=== PATIENT | male | born 1945 | race Caucasian/White ===

== ENCOUNTER 2016-10-02 13:01 | Inpatient (IN) | payer OTHER, MEDICARE ==
[2016-10-02 13:24] LABS: Basophils % (A) 0 %; CH 31.5; CHCM 32.3; Eosinophils # (A) 0.3 k/uL (0-0.7); Eosinophils % (A) 3 %; HCT 34.4 % (39.0-53.0); HDW 2.34; HGB 11.3 gm/dL (13.0-17.5); Luc # (Auto) 0.14; Luc % (Auto) 1; Lymphocytes # (A) 1.2 k/uL (1.0-4.8); Lymphocytes % (A) 11 %; MCHC 32.7 g/dL (31.0-37.0); MCV 97.8 fL (80.0-100.0); Mean Platelet Volume 7.7; Monocytes # (A) 0.4 k/uL (0-1.0); Monocytes % (A) 4 %; Neutrophils # (A) 8.4 k/uL (1.3-7.7); Neutrophils % (A) 80 %; RBC 3.52 m/uL (4.30-5.90); RDW 13.4 % (11.5-15.5); WBC 10.5 k/uL (3.8-10.6); WBC (Perox) 11.54
[2016-10-02 13:35] LABS: INR 1.2 (<1.1); Partial Thromboplastin Time 24.8 sec (22.0-30.0)
--- NOTE | 2016-10-02 13:37 | XR ---
EXAMINATION TYPE: XR chest 1V portable DATE OF EXAM: 10/02/2016 1:32 PM COMPARISON: 10/19/2015 HISTORY: Chest pain TECHNIQUE: Single frontal view of the chest is obtained. FINDINGS: Cardiomegaly and postoperative change. Diffuse interstitial pattern. No pneumothorax or pl eural effusion. No focal pneumonia. IMPRESSION: 1. Correlate for mild interstitial venous congestion. Chronic interstitial lung disease in the differ ential. 2. Severe cardiomegaly
[2016-10-02 13:47] LABS: ALT 36 U/L (21-72); AST 31 U/L (17-59); Alkaline Phosphatase 87 U/L (38-126); Anion Gap 11 mmol/L; Blood Urea Nitrogen 16 mg/dL (9-20); Calcium 8.9 mg/dL (8.4-10.2); Carbon Dioxide 27 mmol/L (22-30); Chloride 106 mmol/L (98-107); Glucose 136 mg/dL (74-99); Magnesium 1.4 mg/dL (1.6-2.3); Non-African American GFR(MDRD) >60 (>60 ml/min/1.73 sqM); Potassium 4.2 mmol/L (3.5-5.1); Sodium 144 mmol/L (137-145); Total Bilirubin 0.5 mg/dL (0.2-1.3)
[2016-10-02 14:06] LABS: Creatine Kinase MB 4.8 ng/mL (0.0-2.4)
[2016-10-02 14:07] LABS: Troponin I 0.055 ng/mL (0.000-0.034)
[2016-10-02] MEDS ORDERED: HEPARIN SODIUM,PORCINE 5,000 UNIT/ML 1 ML VIAL IV PRN ×2 (14:08→22:50)
[2016-10-02] MEDS ORDERED: HEPARIN SODIUM,PORCINE 5,000 UNIT/ML 1 ML VIAL IV ONE (14:08)
[2016-10-02] MEDS ORDERED: RX INFO: IV CONTRAST WAS GIVEN 1 EACH MISC MISCELLANE PRN (14:27)
[2016-10-02] MEDS ORDERED: NITROGLYCERIN SL TABS 0.4 MG TAB SUBLINGUAL PRN (14:34)
[2016-10-02] MEDS ORDERED: MAGNESIUM SULFATE-D5W PMX 1 GM in DEXTROSE/WATER 1 100ML.BAG IVPB ONE (14:45)
--- NOTE | 2016-10-02 14:45 | ED ---
Chest Pain HPI - General Chief Complaint: Recheck/Abnormal Lab/Rx Stated Complaint: EKG CHANGES Time Seen by Provider: 10/02/16 13:06 Source: patient, RN notes reviewed Mode of arrival: EMS Limitations: no limitations - History of Present Illness Initial Comments: This patient is 71-year-old man who states [facility] in his [facility]. The patient when pressed further does admit to having some intermittent chest pains, usually with exertion, that been occurring for weeks to months. He states when the pains are present he also becomes winded very easily. He notes that his exercise tolerance has disappeared. The patient is currently not having chest pain or dyspnea. He does admit to some bilateral lower extremity edema but states that this is present more often than not. MD Complaint: chest pain -: month(s) Onset: during exertion Pain Location: substernal Quality: heaviness Consistency: now resolved Improves With: rest Worsens With: exertion Anginal Symptoms: dyspnea - Related Data Home Medications Medication Instructions Recorded Confirmed Aspirin 81 mg PO DAILY 10/02/16 10/02/16 Atenolol [Tenormin] 25 mg PO DAILY 10/02/16 10/02/16 Clopidogrel [Plavix] 75 mg PO DAILY 10/02/16 10/02/16 Insulin NPH Hum/Reg Insulin Hm 40 unit SQ BID 10/02/16 10/02/16 [NovoLIN 70-30 100 UNIT/ML VIAL] Isosorbide Mononitrate [Ismo] 20 mg PO DAILY 10/02/16 10/02/16 Losartan [Cozaar] 50 mg PO DAILY 10/02/16 10/02/16 Oxybutynin Chloride 5 mg PO BID 10/02/16 10/02/16 Pravastatin Sodium [Pravachol] 20 mg PO HS 10/02/16 10/02/16 Prostate Medication (Unknown) 1 tab PO DAILY 10/02/16 10/02/16 Tamsulosin HCl [Flomax] 0.4 mg PO BID 10/02/16 10/02/16 oxyCODONE-APAP 5-325MG [Percocet 2 tab PO QID PRN 10/02/16 10/02/16 5-325 mg] Allergies Allergy/AdvReac Type Severity Reaction Status Date / Time ciprofloxacin Allergy Unknown Verified 10/02/16 14:20 lisinopril Allergy Cough Verified 10/02/16 14:20 niacin Allergy Unknown Verified 10/02/16 14:20 Penicillins Allergy Rapid Verified 10/02/16 14:20 Heart Rate Sulfa (Sulfonamide Allergy Nausea & Verified 10/02/16 14:20 Antibiotics) Vomiting Review of Systems ROS Statement: Those systems with pertinent positive or pertinent negative responses have been documented in the HPI. ROS Other: All systems not noted in ROS Statement are negative. Constitutional: Denies: fever, chills Respiratory: Denies: cough, dyspnea Cardiovascular: Reports: dyspnea on exertion, edema. Denies: chest pain, palpitations, syncope Gastrointestinal: Denies: abdominal pain, nausea, vomiting Genitourinary: Denies: dysuria, hematuria Musculoskeletal: Denies: back pain Skin: Denies: rash Neurological: Denies: headache, weakness, numbness EKG Findings - EKG Comments: EKG Findings:: The patient's underlying rhythm is appearing to be junctional with a rate about 50 bpm, though it there may be underlying atrial fibrillation with a slow response. - EKG Results: EKG: interpreted by KRISTI, normal axis - Blocks, [place], Hypertrophy, ST Abn: AV and intraventricular conduction: right bundle branch block (fixed/ intermittent, complete/incomplete) - DE, Pacemaker, Normal: Myocardial infarction: anterior DE (old age or indeterminate) (There are Q waves present in leads V3 through V5 suggestive of old anterior infarct) Past Medical History Past Medical History: Diabetes Mellitus, Hyperlipidemia, Hypertension, Myocardial Infarction ([place]) History of Any Multi-Drug Resistant Organisms: None Reported Past Surgical History: Appendectomy, Coronary Bypass/CABG, Tonsillectomy Additional Past Surgical History / Comment(s): right knee surgery; left foot surgery Past Psychological History: No Psychological Hx Reported Smoking Status: Former smoker Past Alcohol Use History: None Reported Past Drug Use History: None Reported - Past Family History Mother Family Medical History: Myocardial Infarction ([place]) Father Additional Family Medical History / Comment(s): cerebral hemorrage General Exam Limitations: no limitations General appearance: alert, in no apparent distress, obese Head exam: Present: atraumatic, normocephalic Eye exam: Present: normal appearance. Absent: scleral icterus, conjunctival injection ENT exam: Present: normal oropharynx Neck exam: Present: normal inspection, full ROM Respiratory exam: Present: normal lung sounds bilaterally. Absent: respiratory distress, wheezes, rales, rhonchi, stridor Cardiovascular Exam: Present: regular rate, normal rhythm, normal heart sounds. Absent: systolic murmur, diastolic murmur, rubs, gallop GI/Abdominal exam: Present: soft. Absent: distended, tenderness, guarding, rebound, mass Extremities exam: Present: normal inspection, normal capillary refill, pedal edema. Absent: calf tenderness Back exam: Present: normal inspection. Absent: CVA tenderness (R), CVA tenderness (L) Neurological exam: Present: alert Skin exam: Present: warm, dry, intact, normal color. Absent: rash, cyanosis, diaphoretic, erythema, petechiae, pallor, mottled Course Vital Signs 10/02/16 10/02/16 10/02/16 13:04 13:20 14:06 Temperature 97.3 F L Pulse Rate 51 L 51 L Pulse Rate [ 54 L Hand Violin Maker ] Respiratory 18 18 Rate Blood Pressure 175/102 168/80 Blood Pressure [Right Arm] O2 Sat by Pulse 99 100 Oximetry 10/02/16 10/02/16 10/02/16 14:34 14:52 15:38 Temperature 96.9 F L Pulse Rate 52 L Pulse Rate [ 53 L Hand Violin Maker ] Respiratory 18 20 Rate Blood Pressure 182/76 Blood Pressure 125/60 [Right Arm] O2 Sat by Pulse 98 100 98 Oximetry 10/02/16 15:45 Temperature 98.4 F Pulse Rate 51 L Pulse Rate [ Hand Violin Maker ] Respiratory 18 Rate Blood Pressure 177/74 Blood Pressure [Right Arm] O2 Sat by Pulse 98 Oximetry Disposition Clinical Impression: Acute coronary syndrome Disposition: ADMITTED IP TO THIS HOSP Condition: Fair
[2016-10-02] MEDS ORDERED: FUROSEMIDE 10 MG/ML 2 ML VIAL IV STA (14:46)
--- NOTE | 2016-10-02 15:03 | CT ---
EXAMINATION TYPE: CT chest angio for PE DATE OF EXAM: 10/02/2016 2:52 PM COMPARISON: Chest x-ray earlier today. HISTORY: Elevated d-dimer, patient not feeling well. CT DLP: 590.90 mGycm Automated exposure control for dose reduction was used. CONTRAST: CT Chest for pulmonary embolism performed with with IV Contrast, patient injected with 100 mL of Omni paque 350. FINDINGS: LUNGS: There is 3 mm calcified nodule laterally left upper lung on axial image 20. Exam is suboptimal as is degraded by respiratory motion artifact. There is small right pleural effusion and tiny left p leural effusion. There is interlobular septal thickening inferiorly suggesting mild interstitial chanda a. No pneumothorax is seen bilaterally. MEDIASTINUM: There is satisfactory enhancement of the pulmonary artery and its branches, there is no CT evidence for pulmonary embolism. There are no greater than 1 cm hilar or mediastinal lymph nodes. No pericardial effusion is seen. Post CABG changes with mediastinal clips and sternal wires is pr esent. Cardiomegaly with mild to moderate biatrial and left ventricular dilatation is noted. There is moderate apical scarring change of aorta and branch vessels. OTHER: There is generalized fat replaced atrophy of the pancreas. Osseous structures are demineralize d. There is moderate multilevel spurring in the spine seen. IMPRESSION: 1. No CT evidence for pulmonary embolism. 2. Consider CHF exacerbation as there is cardiomegaly with small right greater than left pleural effu sions and mild interstitial edema felt present, clinical correlation advised.
[2016-10-02] MEDS: HEPARIN SODIUM,PORCINE/D5W PMX 25,000 UNIT in DEXTROSE/WATER 1 500ML.BAG IV SCH (15:06)
[2016-10-02 16:44] LABS: Glucose,Whole Blood 136 mg/dL (75-99)
[2016-10-02] MEDS: INSULIN NPH/REG INSULIN 70/30 300 UNIT/3 ML VIAL SQ SCH (17:27)
[2016-10-02] MEDS: oxyCODONE-APAP 5-325MG 1 EACH TAB PO PRN ×2 (17:34→21:06)
[2016-10-02 20:59] LABS: Glucose,Whole Blood 181 mg/dL (75-99)
[2016-10-02] MEDS: OXYBUTYNIN CHLORIDE 5 MG TAB PO SCH (21:06)
[2016-10-02] MEDS: PRAVASTATIN SODIUM 20 MG TAB PO SCH (21:06)
[2016-10-02] MEDS: TAMSULOSIN 0.4 MG CAP.ER.24H PO SCH (21:06)
[2016-10-02] MEDS: MAGNESIUM OXIDE 400 MG TAB PO SCH (21:06)
[2016-10-02 21:07] LABS: Creatine Kinase MB 4.4 ng/mL (0.0-2.4); Troponin I 0.061 ng/mL (0.000-0.034)
[2016-10-03 03:04] LABS: Creatine Kinase MB 3.5 ng/mL (0.0-2.4); Troponin I 0.056 ng/mL (0.000-0.034)
[2016-10-03] MEDS ORDERED: hydrALAZINE HCL 10 MG TAB PO STA (04:42)
[2016-10-03 05:53] LABS: Glucose,Whole Blood 71 mg/dL (75-99)
[2016-10-03 06:00] LABS: Basophils % (A) 0 %; CH 30.9; CHCM 30.8; Eosinophils # (A) 0.5 k/uL (0-0.7); Eosinophils % (A) 5 %; HCT 35.1 % (39.0-53.0); HDW 2.21; HGB 10.9 gm/dL (13.0-17.5); Hypochromasia Slight; Luc # (Auto) 0.19; Luc % (Auto) 2; Lymphocytes # (A) 1.9 k/uL (1.0-4.8); Lymphocytes % (A) 20 %; MCH 31.3 pg (25.0-35.0); MCHC 31.1 g/dL (31.0-37.0); MCV 100.8 fL (80.0-100.0); Mean Platelet Volume 7.3; Monocytes # (A) 0.5 k/uL (0-1.0); Monocytes % (A) 6 %; Neutrophils # (A) 6.4 k/uL (1.3-7.7); Neutrophils % (A) 67 %; RBC 3.48 m/uL (4.30-5.90); RDW 13.2 % (11.5-15.5); WBC 9.5 k/uL (3.8-10.6); WBC (Perox) 10.04
[2016-10-03 06:23] LABS: Magnesium 1.8 mg/dL (1.6-2.3)
--- NOTE | 2016-10-03 06:31 | HP ---
DATE OF ADMISSION: CHIEF COMPLAINT: Sent from [facility] due to abnormal EKG. HISTORY OF PRESENT ILLNESS: Mr. Scott is a 71-year-old male with a known history of coronary artery disease, hypertension, diabetes mellitus, and history of [place], and also history of coronary artery bypass graft several years ago came to the hospital with abnormal EKG and was sent from [facility]. Apparently, patient says that he is not feeling well and having occasional chest pains with exertion which made him to go to the hospital and was found to have EKG changes in the [facility] and he is subsequently sent to ER for further evaluation. Patient was also found to have elevated troponin level and was admitted to the hospital currently. Patient says that he had cardiac catheterization done 2 to 3 months ago at [facility]. Patient does not know whether he had a stent placed or out. The patient also says that he has some leg swelling on and off bilaterally. Otherwise, currently he denied any complaints of chest pain or short of breath. Patient was started on heparin IV and chest x-ray showed correlate for mild interstitial venous congestion, chronic interstitial lung disease is in differential; severe cardiomegaly. Patient had elevated D-dimer and subsequent CT angiogram showed no pulmonary embolism. The patient otherwise denied any fever, chills. No recent illnesses or sick contacts or recent travel. REVIEW OF SYSTEMS: CONSTITUTIONAL: No fever. No chills. No weakness or malaise. No weight loss. RESPIRATORY: No cough or sputum production. CARDIOVASCULAR: Occasional chest pain on and off. No palpitations. No orthopnea, no PND. No leg swelling. ABDOMEN: No nausea, vomiting, abdominal pain. GENITOURINARY: Negative. ENDOCRINE: Negative. PSYCHIATRIC: Negative. Patient did have one episode of diarrhea yesterday. MUSCULOSKELETAL: Negative. All other 14-point review of systems negative except as above. Past medical history includes hypertension, diabetes mellitus, history of coronary artery disease and bypass graft, hyperlipidemia, history of [place]. PAST SURGICAL HISTORY: Appendectomy, coronary artery bypass graft, tonsillectomy, right knee surgery, left foot surgery. SOCIAL HISTORY: Patient a former smoker. Currently denied any smoking. Denied any alcohol. Denied any drugs or IVDU. FAMILY HISTORY: Mother had [place]. Father had cerebral hemorrhage. Allergies include CIPROFLOXACIN, LISINOPRIL, NIACIN, PENICILLINS, SULFA. HOME MEDICATIONS: 1. Aspirin. 2. Tenormin. 3. Plavix. 4. Insulin 70/30. 5. Imdur. 6. Cozaar. 7. Oxybutynin. 8. Pravastatin. 9. Prostate medication. 10. Tamsulosin. 11. Percocet. PHYSICAL EXAMINATION: A 71-year-old male lying in the bed comfortably. Awake, alert, oriented x3, appears to be in no apparent distress. VITALS: Blood pressure is 182/76, pulse is 52, respirations 18, temperature afebrile, pulse ox 100% on 2 L nasal cannula. HEENT: Atraumatic, normocephalic. Neck is supple. No JVD. CVS: S1, S2 heard. No murmurs, no gallop, no rub. LUNGS: Bilateral air entry is present. No wheezing. No crackles. Nonlabored breathing. ABDOMEN: Soft, obese. Bowel sounds are present. HAND STRIPPER: Awake, alert, oriented x3. No focal neurologic deficits. Cranial nerves grossly intact. EXTREMITIES: Trace edema. Pulses palpable bilaterally. No clubbing or cyanosis. PSYCHIATRIC: Cooperative. LABORATORY DATA: WBC 10.5, hemoglobin 11.3, platelets 215. INR 1.2. D-dimer is 1.39. Sodium 144, potassium 4.2, chloride 106, bicarb is 27. BUN 16, creatinine 0.81. Blood sugar is 136. Magnesium 1.4. Troponin 0.055 and 0.061. Albumin 3.4. Pro-BNP is 2500. Chest x-ray showed interstitial congestion. CT angiogram no CT evidence of pulmonary embolism, consider CHF exacerbation as there is cardiomegaly and with a small right greater than left pleural effusion and mild interstitial edema felt present. EKG atrial fibrillation with slow ventricular rate. IMPRESSION: 1. Elevated troponin level possible non-ST elevation myocardial infarction. 2. Atrial fibrillation with a slow ventricular rate, possible new onset. 3. History of coronary artery disease with recent cardiac catheterization and history of coronary artery bypass graft. 4. Hypertension. 5. Hyperlipidemia. 6. History of myocardial infarction. 7. Degenerative joint disease. 8. Diabetes type 2 insulin dependent. 9. Benign prostatic hypertrophy. DISCUSSION AND PLAN: A 71-year-old male admitted to the hospital with abnormal EKG and was sent from [facility] was found to have atrial fibrillation with slow ventricular rate and elevated troponin level. The patient will be continued on anticoagulation. Will obtain records from [facility]. Cardiology will be consulted for further evaluation. Otherwise, we will continue with aspirin and Plavix and heparin drip at this time. Continue with insulin dosing and sliding scale. Further recommendations based on the clinical course.
[2016-10-03] MEDS: ISOSORBIDE MONONITRATE 20 MG TAB PO SCH (08:50)
[2016-10-03] MEDS: CLOPIDOGREL 75 MG TAB PO SCH (08:51)
[2016-10-03] MEDS: FINASTERIDE 5 MG TAB PO SCH (08:51)
[2016-10-03] MEDS: OXYBUTYNIN CHLORIDE 5 MG TAB PO SCH ×2 (08:51→20:33)
[2016-10-03] MEDS: LOSARTAN 50 MG TAB PO SCH (08:51)
[2016-10-03] MEDS: MAGNESIUM OXIDE 400 MG TAB PO SCH ×2 (08:52→20:33)
[2016-10-03] MEDS: TAMSULOSIN 0.4 MG CAP.ER.24H PO SCH ×2 (08:52→20:33)
[2016-10-03] MEDS ORDERED: ATENOLOL 25 MG TAB PO SCH (09:00)
[2016-10-03] MEDS: INSULIN NPH/REG INSULIN 70/30 300 UNIT/3 ML VIAL SQ SCH ×3 (09:01→20:33)
--- NOTE | 2016-10-03 09:58 | P.CRDCN ---
History of Present Illness Consult date: 10/03/16 Requesting physician: Wilma Galan Consult reason: chest pain Chief complaint: Exertional shortness of breath and chest pain History of present illness: This is a pleasant 71-year-old gentleman with history of diabetes, hypertension, hyperlipidemia, coronary artery disease with prior bypass surgery in the 1980s, most recently patient states he underwent a stent placement earlier this year, he did have a subsequent admission apparently after that with some heart issues, and most recently underwent an appendectomy. He follows with a financial sales assistant at [facility]. Patient was transferred here from the [place] office in [place] where he was going for a follow-up appointment. Apparently walking into his appointment, patient became quite exertionally short of breath and developed some pressure and heaviness in his chest. The reason he was going to his appointment there is because he had noticed some new peripheral edema and he had been feeling weak and sluggish for the past week or so. An EKG was performed at the [place], which revealed atrial fibrillation with a slow ventricular response and nonspecific ST-T wave changes. EMS was called and the patient was transferred here. EKG on arrival here showed atrial fibrillation with a right bundle branch block pattern and nonspecific ST-T wave changes. Chest x-ray revealed mild interstitial venous congestion. CTA of the chest was negative for pulmonary embolism, suggested just of heart failure exacerbation with small right greater than left pleural effusions and mild interstitial edema. Lab data reviewed, BNP level 2500. Troponins 0.055, 0.061 , 0.056. D-dimer 1.39. Magnesium level I.4, replaced, 1.8 this morning. Patient was also given a one-time dose of IV Lasix. Currently on IV heparin. Past Medical History Past Medical History: Diabetes Mellitus, Hyperlipidemia, Hypertension, Myocardial Infarction ([place]) Additional Past Medical History / Comment(s): PT THINKS HE HAD A FLU VACCINE AT DR UNGER'S OFFICE-WAS UNABLE TO VERIFY THIS D/T OFFICE CLOSED FOR HOLIDAY. Last Myocardial Infarction Date:: History of Any Multi-Drug Resistant Organisms: None Reported Past Surgical History: Appendectomy, Coronary Bypass/CABG, Tonsillectomy Additional Past Surgical History / Comment(s): right knee surgery; left foot surgery Past Anesthesia/Blood Transfusion Reactions: No Reported Reaction Past Psychological History: No Psychological Hx Reported Smoking Status: Former smoker Past Alcohol Use History: None Reported Additional Past Alcohol Use History / Comment(s): started smoking at age 11(1952 ), quit 1980,was smoking 1 ppd Past Drug Use History: None Reported - Past Family History Mother Family Medical History: Myocardial Infarction ([place]) Father Additional Family Medical History / Comment(s): cerebral hemorrage Medications and Allergies Home Medications Medication Instructions Recorded Confirmed Type Aspirin 81 mg PO DAILY 10/02/16 10/02/16 History Atenolol [Tenormin] 25 mg PO DAILY 10/02/16 10/02/16 History Clopidogrel [Plavix] 75 mg PO DAILY 10/02/16 10/02/16 History Insulin NPH Hum/Reg Insulin Hm 40 unit SQ BID 10/02/16 10/02/16 History [NovoLIN 70-30 100 UNIT/ML VIAL] Isosorbide Mononitrate [Ismo] 20 mg PO DAILY 10/02/16 10/02/16 History Losartan [Cozaar] 50 mg PO DAILY 10/02/16 10/02/16 History Oxybutynin Chloride 5 mg PO BID 10/02/16 10/02/16 History Pravastatin Sodium [Pravachol] 20 mg PO HS 10/02/16 10/02/16 History Tamsulosin HCl [Flomax] 0.4 mg PO BID 10/02/16 10/02/16 History oxyCODONE-APAP 5-325MG [Percocet 2 tab PO QID PRN 10/02/16 10/02/16 History 5-325 mg] Allergies Allergy/AdvReac Type Severity Reaction Status Date / Time ciprofloxacin Allergy Unknown Verified 10/02/16 14:20 lisinopril Allergy Cough Verified 10/02/16 14:20 niacin Allergy Unknown Verified 10/02/16 14:20 Penicillins Allergy Rapid Verified 10/02/16 14:20 Heart Rate Sulfa (Sulfonamide Allergy Nausea & Verified 10/02/16 14:20 Antibiotics) Vomiting Physical Exam Vitals: Vital Signs Temp Pulse Pulse Pulse Resp BP BP 10/03/16 08:00 96.8 F L 49 L 38 L 18 173/73 10/03/16 04:57 38 L 16 10/03/16 03:50 96.9 F L 48 L 16 10/03/16 00:00 97 F L 45 L 16 10/02/16 21:00 97.4 F L 46 L 16 10/02/16 16:39 53 L 20 10/02/16 16:38 96.9 F L 53 L 20 10/02/16 15:45 98.4 F 51 L 18 177/74 10/02/16 15:38 96.9 F L 53 L 20 10/02/16 14:52 52 L 18 182/76 BP Pulse Ox 10/03/16 08:00 97 10/03/16 04:57 177/77 98 10/03/16 03:50 181/103 96 10/03/16 00:00 168/70 93 L 10/02/16 21:00 168/79 93 L 10/02/16 16:39 10/02/16 16:38 125/60 98 10/02/16 15:45 98 10/02/16 15:38 125/60 98 10/02/16 14:52 100 Intake and Output 10/02/16 10/03/16 10/03/16 22:59 06:59 14:59 Intake Total 894.179 600 Output Total 200 Balance 694.179 600 Intake: IV 260 .9 @ 20 40 Heparin Sodium,Porcine/ 20 D5w Pmx 25,000 unit In Dextrose/Water 1 500ml. bag @ 8.1 UNITS/KG/HR 19. 98 mls/hr IV .Q24H [facility] Rx #:[id number] Magnesium Sulfate-D5w Pmx 200 1 gm In Dextrose/Water 1 100ml.bag @ 100 mls/hr IVPB ONCE ONE Rx#: [id number] Intake, IV Titration 154.179 Amount Heparin Sodium,Porcine/ 154.179 D5w Pmx 25,000 unit In Dextrose/Water 1 500ml. bag @ 8.1 UNITS/KG/HR 19. 98 mls/hr IV .Q24H [facility] Rx #:[id number] Oral 480 600 Output: Urine 200 Other: Voiding Method Toilet Toilet Toilet Urinal Urinal Urinal # Voids 1 Weight 124.1 kg 122.6 kg PHYSICAL EXAMINATION: HEENT: [Head is atraumatic, normocephalic. Pupils equal, round. Neck is supple. There is elevated jugular venous pressure.] HEART EXAMINATION: [Heart S1, S2 irregular irregular a systolic murmur is heard. CHEST EXAMINATION:[ Lungs reveal diminished air entry to bilateral bases. ABDOMEN: [ Soft, nontender. Bowel sounds are heard. No organomegaly noted]. EXTREMITIES:[ 1+ peripheral pulses with 1+ evidence of peripheral edema and no calf tenderness noted].Bilateral ear erythema to them both lower extremities noted NEUROLOGIC [patient is awake, alert and oriented -3.] . Results 10/03/16 05:36 10/02/16 13:10 Cardiac Enzymes 10/02/16 10/03/16 Range/Units 20:16 01:36 CK-MB (CK-2) 4.4 H* 3.5 H* (0.0-2.4) ng/mL Troponin I 0.061 H* 0.056 H* (0.000-0.034) ng/mL Coagulation 10/02/16 10/03/16 Range/Units 20:16 05:36 APTT 31.8 H 35.1 H (22.0-30.0) sec Lipids 10/03/16 Range/Units 05:36 Triglycerides 49 (<150) mg/dL Cholesterol 100 (<200) mg/dL HDL Cholesterol 34 L (40-60) mg/dL CBC 10/03/16 Range/Units 05:36 WBC 9.5 (3.8-10.6) k/uL RBC 3.48 L (4.30-5.90) m/uL Hgb 10.9 L (13.0-17.5) gm/dL Hct 35.1 L (39.0-53.0) % Plt Count 220 (150-450) k/uL Current Medications Generic Name Dose Route Start Last Admin Trade Name Jamesq PRN Reason Stop Dose Admin Aspirin 325 mg 10/03/16 09:00 Aspirin PO DAILY [facility] Atenolol 25 mg 10/03/16 09:00 Tenormin PO DAILY [facility] Clopidogrel Bisulfate 75 mg 10/03/16 09:00 10/03/16 08:51 Plavix PO 75 mg DAILY [facility] Administration Finasteride 5 mg 10/03/16 09:00 10/03/16 08:51 Proscar PO Not Given DAILY [facility] Heparin Sodium (Porcine) 0 unit 10/02/16 14:08 Heparin IV PER PROTOCOL PRN Low PTT Protocol Heparin Sodium (Porcine) 0 unit 10/02/16 22:50 Heparin IV PER PROTOCOL PRN Low PTT Protocol Heparin Sodium/Dextrose 25,000 500 mls @ 19.98 mls/hr 10/02/16 14:15 22:49 unit/ IV Solution IV 11.1 units/kg/hr .Q24H [facility] 27.38 mls/hr Protocol Titration 8.1 UNITS/KG/HR Insulin Human Isoph/Insulin Regular 40 unit 10/02/16 17:30 10/03/16 09:01 Humulin 70/30 Vial SQ Not Given AC-BID [facility] Isosorbide Mononitrate 20 mg 10/03/16 09:00 10/03/16 08:50 Ismo PO 20 mg DAILY [facility] Administration Losartan Potassium 50 mg 10/03/16 09:00 10/03/16 08:51 Cozaar PO 50 mg DAILY [facility] Administration Magnesium Oxide 400 mg 10/02/16 21:00 10/03/16 08:52 Mag-Ox PO 400 mg BID [facility] Administration Miscellaneous Information 1 each 10/02/16 14:27 Rx Info: Iv Contrast Was Given MISCELLANE 10/04/16 14:27 DAILY PRN Per Protocol Nitroglycerin 0.4 mg 10/02/16 14:34 Nitrostat SUBLINGUAL Q5M PRN Chest Pain Oxybutynin Chloride 5 mg 10/02/16 21:00 10/03/16 08:51 Ditropan PO 5 mg BID [facility] Administration Oxycodone/Acetaminophen 2 each 10/02/16 14:37 10/02/16 21:06 Percocet 5-325 PO 2 each QID PRN Administration Pain Pravastatin Sodium 20 mg 10/02/16 21:00 10/02/16 21:06 Pravachol PO 20 mg HS [facility] Administration Tamsulosin HCl 0.4 mg 10/02/16 21:00 10/03/16 08:52 Flomax PO 0.4 mg BID [facility] Administration Intake and Output 10/02/16 10/03/16 10/03/16 22:59 06:59 14:59 Intake Total 894.179 600 Output Total 200 Balance 694.179 600 Intake: IV 260 .9 @ 20 40 Heparin Sodium,Porcine/ 20 D5w Pmx 25,000 unit In Dextrose/Water 1 500ml. bag @ 8.1 UNITS/KG/HR 19. 98 mls/hr IV .Q24H [facility] Rx #:[id number] Magnesium Sulfate-D5w Pmx 200 1 gm In Dextrose/Water 1 100ml.bag @ 100 mls/hr IVPB ONCE ONE Rx#: [id number] Intake, IV Titration 154.179 Amount Heparin Sodium,Porcine/ 154.179 D5w Pmx 25,000 unit In Dextrose/Water 1 500ml. bag @ 8.1 UNITS/KG/HR 19. 98 mls/hr IV .Q24H [facility] Rx #:[id number] Oral 480 600 Output: Urine 200 Other: Voiding Method Toilet Toilet Toilet Urinal Urinal Urinal # Voids 1 Weight 124.1 kg 122.6 kg 10/03/16 05:36 EKG Interpretations (text) EKG shows atrial fibrillation with a slow ventricular response, right bundle branch block pattern Assessment and Plan Plan: Assessment and plan #1 symptoms of exertional shortness of breath and chest discomfort. Evidence of congestive heart failure. Patient received one time dose of IV Lasix. Troponins 0.055, 0.061, 0.056.CTA of the chest negative for PE #2 new-onset atrial fibrillation,paroxysmal, EKG showed atrial fibrillation with a slow ventricular response, right bundle branch block pattern. #3 known history of coronary artery disease with prior bypass surgery in the 1980s, most recently patient states he underwent a stent placement at [facility] exact details unavailable. #4 hypertension #5 hyperlipidemia #6 diabetes #7 history of agent orange #8 recent appendectomy #9 abnormal troponins, 0.055, 0.061, 0.056. Not suggestive of acute coronary syndrome, could be secondary to oxygen supply and demand mismatch. Plan We'll obtain an echocardiogram with Doppler study. We will also start the patient on IV Lasix.patient and the family are requesting transferred to [facility] per the patient's financial sales assistant is located. Arrangements are being made for this transfer. In the meantime, we will continue to diurese the patient, continue IV heparin.discussion was made with the patient and the family regarding the need for oral anticoagulation for stroke prevention. Further recommendations to follow. DNP note has been reviewed, I agree with a documented findings and plan of care. Patient was seen and examined.
[2016-10-03] MEDS: ASPIRIN 325 MG TAB PO SCH (11:18)
--- NOTE | 2016-10-03 11:34 | ECHOF ---
Referral Reason:chf MEASUREMENTS -------- HEIGHT: 175.3 cm WEIGHT: 122.5 kg BP: 173/73 RVIDd: 2.9 cm (< 3.3) IVSd: 1.4 cm (0.6 - 1.1) LVIDd: 6.2 cm (3.9 - 5.3) LVPWd: 1.4 cm (0.6 - 1.1) IVSs: 2.0 cm LVIDs: 4.5 cm LVPWs: 1.9 cm LA Diam: 4.5 cm (2.7 - 3.8) Ao Diam: 2.7 cm (2.0 - 3.7) AV Cusp: 2.1 cm (1.5 - 2.6) LA Diam: 5.2 cm (2.7 - 3.8) MV EXCURSION: 17.961 mm (> 18.000) MV EF SLOPE: 52 mm/s (70 - 150) EPSS: 0.7 cm MV E Abdirashid: 0.80 m/s MV DecT: 228 ms MV A Abdirashid: 0.39 m/s MV E/A Ratio: 2.09 FINDINGS -------- Sinus rhythm. Morbid Obesity This was a techncally difficult study with suboptimal views, , Definity utilized for enhancement of images. There is mild concentric left ventricular hypertrophy. Overall left ventricular systolic function is mild-moderately impaired with, an EF between 40 - 45 %. Anterseptal Hypokinesis [place] Hypokinesis. Distal Septal Hypokinesis. The right ventricle is normal in size. The left atrial size is normal. The right atrial size is normal. 1.5MG OF DEFINITY UTLIZED: 2 OR MORE WALL SEGMENTS NOT VISUALIZED. There is mild aortic valve sclerosis. Mild mitral annular calcification present. Mild mitral regurgitation is present. Mild tricuspid regurgitation present. There is no evidence of pulmonary hypertension. The right ventricular systolic pressure, as measured by Doppler, is {RVSP}. There is no pulmonic regurgitation present. The aortic root size is normal. There is no pericardial effusion. CONCLUSIONS -------- 1. Morbid Obesity 2. Mild mitral annular calcification present. 3. Mild mitral regurgitation is present. 4. Mild tricuspid regurgitation present. 5. There is no evidence of pulmonary hypertension. 6. The right ventricular systolic pressure, as measured by Doppler, is {RVSP}. 7. This was a techncally difficult study with suboptimal views, , Definity utilized for enhancement of images. 8. There is mild concentric left ventricular hypertrophy. 9. Overall left ventricular systolic function is mild-moderately impaired with, an EF between 40 - 45 %. 10. Anterseptal Hypokinesis 11. [place] Hypokinesis. 12. Distal Septal Hypokinesis. 13. 1.5MG OF DEFINITY UTLIZED: 2 OR MORE WALL SEGMENTS NOT VISUALIZED. 14. There is mild aortic valve sclerosis. NEEDLE VALVE OPERATOR: Sissy Reyes RDCS
[2016-10-03 12:15] LABS: Glucose,Whole Blood 143 mg/dL (75-99)
[2016-10-03 12:22] LABS: Hemoglobin A1C 6.5 % (4.2-6.1)
[2016-10-03] MEDS: HEPARIN SODIUM,PORCINE/D5W PMX 25,000 UNIT in DEXTROSE/WATER 1 500ML.BAG IV SCH ×2 (14:10→21:51)
[2016-10-03] MEDS: oxyCODONE-APAP 5-325MG 1 EACH TAB PO PRN (14:14)
[2016-10-03 16:45] LABS: Glucose,Whole Blood 151 mg/dL (75-99)
--- NOTE | 2016-10-03 19:43 | PN ---
Patient is a 71-year-old who had a recent myocardial infarction, stenting recently at [facility]. Patient came in with shortness of breath. Patient does have congestive heart failure. Patient is on IV Lasix at this point of time. Patient has chronic systolic dysfunction, ejection fraction of around 40%. REVIEW OF SYSTEMS: CARDIOVASCULAR: As described in HPI. PULMONARY: As described in HPI. GASTROINTESTINAL: No diarrhea, nausea or vomiting. No abdominal pain. Normoactive bowel sounds. NEUROLOGIC: No headaches, no weakness, no numbness. Medications were reviewed. PHYSICAL EXAMINATION: VITAL SIGNS: Temperature 97.7, pulse of 48. Atenolol will be discontinued. Blood pressure is 141/65. Saturating at 97% on room air. GENERAL: The patient is alert and oriented x3, not in any acute distress. Well developed, well nourished. HEENT: Pupils are round and equally reacting to light. EOMI. No scleral icterus. No conjunctival pallor. Normocephalic, atraumatic. No pharyngeal erythema. No thyromegaly. CARDIOVASCULAR: S1, S2 present. Patient does have elevated JVD. Patient has pitting pedal edema. PULMONARY: Patient has bibasilar crackles that were appreciated. No wheezing was appreciated. ABDOMEN: Soft, nontender, nondistended, normoactive bowel sounds. No palpable organomegaly. MUSCULOSKELETAL: No joint swelling or deformity. EXTREMITIES: No cyanosis, clubbing. Patient does have pitting pedal edema. NEUROLOGICAL: Gross neurological examination did not reveal any focal deficits. SKIN: No rashes. LABORATORY DATA: CBC, CMP are abnormal for mildly elevated troponins, 0.056. They are stable at that level. ASSESSMENT AND PLAN: 1. Congestive heart failure, chronic systolic dysfunction, with acute exacerbation. Patient will be on IV Lasix. Strict I&O. 2. Mildly elevated troponin secondary to congestive heart failure and actual myocardial infarction. 3. Atrial fibrillation with slow ventricular rate. I will hold off on atenolol at this point of time. 4. Coronary artery disease, recent cardiac catheterization and stent placement. Patient had CABG in the past. 5. Hypertension. 6. Hyperlipidemia. 7. Insulin-dependent diabetes mellitus. 8. Benign prostatic hypertrophy. For above-mentioned chronic medical problems, I will go ahead and continue the home medications.
[2016-10-03 20:12] LABS: Glucose,Whole Blood 182 mg/dL (75-99)
[2016-10-03] MEDS: FUROSEMIDE 10 MG/ML 4 ML VIAL IV SCH (20:33)
[2016-10-03] MEDS: PRAVASTATIN SODIUM 20 MG TAB PO SCH (20:33)
[2016-10-04 00:18] LABS: Glucose,Whole Blood 62 mg/dL (75-99)
[2016-10-04 00:43] LABS: Glucose,Whole Blood 73 mg/dL (75-99)
[2016-10-04] MEDS: oxyCODONE-APAP 5-325MG 1 EACH TAB PO PRN ×2 (02:58→16:25)
[2016-10-04 03:15] LABS: Glucose,Whole Blood 101 mg/dL (75-99)
[2016-10-04 05:24] LABS: Basophils % (A) 0 %; CH 31.2; CHCM 31.7; Eosinophils # (A) 0.4 k/uL (0-0.7); Eosinophils % (A) 4 %; HCT 33.7 % (39.0-53.0); HDW 2.21; HGB 10.7 gm/dL (13.0-17.5); Luc # (Auto) 0.15; Luc % (Auto) 1; Lymphocytes # (A) 1.5 k/uL (1.0-4.8); Lymphocytes % (A) 13 %; MCH 31.5 pg (25.0-35.0); MCHC 31.9 g/dL (31.0-37.0); MCV 98.7 fL (80.0-100.0); Mean Platelet Volume 7.4; Monocytes # (A) 0.6 k/uL (0-1.0); Monocytes % (A) 5 %; Neutrophils # (A) 8.3 k/uL (1.3-7.7); Neutrophils % (A) 76 %; RBC 3.41 m/uL (4.30-5.90); RDW 13.2 % (11.5-15.5); WBC 10.9 k/uL (3.8-10.6); WBC (Perox) 11.26
[2016-10-04 06:40] LABS: Glucose,Whole Blood 117 mg/dL (75-99)
[2016-10-04] MEDS: FINASTERIDE 5 MG TAB PO SCH (08:18)
[2016-10-04] MEDS: TAMSULOSIN 0.4 MG CAP.ER.24H PO SCH ×2 (08:29→21:44)
[2016-10-04] MEDS: CLOPIDOGREL 75 MG TAB PO SCH (08:29)
[2016-10-04] MEDS: FUROSEMIDE 10 MG/ML 4 ML VIAL IV SCH ×2 (08:29→21:42)
[2016-10-04] MEDS: OXYBUTYNIN CHLORIDE 5 MG TAB PO SCH ×2 (08:29→21:44)
[2016-10-04] MEDS: LOSARTAN 50 MG TAB PO SCH (08:29)
[2016-10-04] MEDS: ISOSORBIDE MONONITRATE 20 MG TAB PO SCH (08:29)
[2016-10-04] MEDS: MAGNESIUM OXIDE 400 MG TAB PO SCH ×2 (08:29→21:43)
[2016-10-04] MEDS: ASPIRIN 325 MG TAB PO SCH (08:29)
[2016-10-04 11:58] LABS: Glucose,Whole Blood 119 mg/dL (75-99)
--- NOTE | 2016-10-04 14:18 | P.PN ---
Subjective Slit pleasant 71-year-old gentleman with history of diabetes, hypertension, hyperlipidemia, coronary artery disease, prior bypass surgery in the 1980s and recent stent placement earlier this year. He follows with a signal circuit designer at [facility]. [facility] for a follow-up appointment. Apparently walking into his appointment patient became quite exertionally short of breath and developed some pressure and heaviness in his chest. He was being seen at the ID clinic because of some new peripheral edema as well as feeling weak and sluggish for the past week or so. An EKG was performed at the ID which revealed atrial fibrillation with a slow ventricular response and nonspecific ST -T wave abnormalities. Chest was done upon presentation here that was negative for PE, suggestive of heart failure exacerbation with small right greater than left pleural effusions and mild interstitial edema. X-ray revealed mild interstitial venous congestion. Patient underwent echocardiogram yesterday that showed an ejection fraction of 40-45%. Objective - Vital Signs Vital signs: Vital Signs Temp 96.6 F L 10/04/16 12:00 Pulse 55 L 10/04/16 12:00 Resp 18 10/04/16 12:00 BP 173/72 10/04/16 12:00 Pulse Ox 98 10/04/16 12:00 Intake & Output 10/03/16 10/04/16 10/04/16 18:59 06:59 18:59 Intake Total 8477.202 5169.892 Output Total 2400 1195 Balance 1085.821 -2400 226.892 Weight 122.7 kg Intake: IV 280 80 .9 @ 20 140 40 Heparin Sodium,Porcine/ 140 40 D5w Pmx 25,000 unit In Dextrose/Water 1 500ml. bag @ 8.1 UNITS/KG/HR 19. 98 mls/hr IV .Q24H [facility] Rx #:[id number] Intake, IV Titration 345.821 461.892 Amount Heparin Sodium,Porcine/ 345.821 461.892 D5w Pmx 25,000 unit In Dextrose/Water 1 500ml. bag @ 8.1 UNITS/KG/HR 19. 98 mls/hr IV .Q24H [facility] Rx #:[id number] Oral 460 880 Output: Urine 2400 1195 Other: Voiding Method Toilet Toilet Toilet Urinal Urinal Urinal # Voids 1 2 - Exam PHYSICAL EXAMINATION: HEENT: Head is atraumatic, normocephalic. Pupils equal, round. Neck is supple. There is no elevated jugular venous pressure. HEART EXAMINATION: Heart sounds irregularly irregular, S1 and S2 with a systolic murmur. CHEST EXAMINATION: Lungs taylor diminished air entry bilateral bases. No chest wall tenderness is noted on palpation or with deep breathing. ABDOMEN: Soft, nontender. Bowel sounds are heard. No organomegaly noted. EXTREMITIES: 1+ peripheral pulses with evidence of trace peripheral edema and no calf tenderness noted. NEUROLOGIC patient is awake, alert and oriented x3. . - Labs CBC & Chem 7: 10/04/16 04:28 10/02/16 13:10 Labs: Abnormal Lab Results - Last 24 Hours (Table) 10/03/16 10/03/16 10/03/16 Range/Units 14:07 16:40 19:52 WBC (3.8-10.6) k/uL RBC (4.30-5.90) m/uL Hgb (13.0-17.5) gm/dL Hct (39.0-53.0) % Neutrophils # (1.3-7.7) k/uL APTT 32.3 H (22.0-30.0) sec POC Glucose (mg/dL) 151 H 182 H (75-99) mg/dL 10/03/16 10/03/16 10/04/16 Range/Units 20:52 23:59 00:23 WBC (3.8-10.6) k/uL RBC (4.30-5.90) m/uL Hgb (13.0-17.5) gm/dL Hct (39.0-53.0) % Neutrophils # (1.3-7.7) k/uL APTT 30.6 H (22.0-30.0) sec POC Glucose (mg/dL) 62 L 73 L (75-99) mg/dL 10/04/16 10/04/16 10/04/16 Range/Units 03:11 04:28 04:28 WBC 10.9 H (3.8-10.6) k/uL RBC 3.41 L (4.30-5.90) m/uL Hgb 10.7 L (13.0-17.5) gm/dL Hct 33.7 L (39.0-53.0) % Neutrophils # 8.3 H (1.3-7.7) k/uL APTT 68.0 H (22.0-30.0) sec POC Glucose (mg/dL) 101 H (75-99) mg/dL 10/04/16 10/04/16 Range/Units 06:00 11:39 WBC (3.8-10.6) k/uL RBC (4.30-5.90) m/uL Hgb (13.0-17.5) gm/dL Hct (39.0-53.0) % Neutrophils # (1.3-7.7) k/uL APTT (22.0-30.0) sec POC Glucose (mg/dL) 117 H 119 H (75-99) mg/dL Assessment and Plan Plan: #1 acute systolic congestive heart failure symptoms of exertional shortness of breath and chest discomfort #2 new-onset atrial fibrillation with slow ventricular response and a right bundle branch block #3 coronary artery disease with stent placement earlier this year #4 hypertension #5 hyperlipidemia #6 diabetes #7 abnormal troponins, 0.055, 0.061 and 0.056. Not suggestive of acute coronary syndrome, could be secondary to oxygen supply demand mismatch. From cardiac standpoint, current medications were reviewed and we will continue the same. We will follow the patient's renal function and electrolytes. Further recommendations to follow. COMMUNITY ADVOCATE note has been reviewed, I agree with a documented findings and plan of care. Patient was seen and examined.
--- NOTE | 2016-10-04 14:49 | XR ---
EXAMINATION TYPE: XR chest 1V portable DATE OF EXAM: 10/04/2016 2:45 PM COMPARISON: 10/02/2016 HISTORY: CHF TECHNIQUE: Single frontal view of the chest is obtained. FINDINGS: The heart is enlarged. There is postoperative change. Hyperinflation suggests COPD. No pneumothorax or pleural effusion. No focal pneumonia. IMPRESSION: 1. Cardiomegaly and findings suggestive of COPD
[2016-10-04 15:14] LABS: Anion Gap 12 mmol/L; Blood Urea Nitrogen 17 mg/dL (9-20); Calcium 9.4 mg/dL (8.4-10.2); Carbon Dioxide 26 mmol/L (22-30); Chloride 105 mmol/L (98-107); Glucose 149 mg/dL (74-99); Non-African American GFR(MDRD) >60 (>60 ml/min/1.73 sqM); Potassium 4.9 mmol/L (3.5-5.1); Sodium 143 mmol/L (137-145)
[2016-10-04 17:17] LABS: Glucose,Whole Blood 137 mg/dL (75-99)
[2016-10-04] MEDS: INSULIN NPH/REG INSULIN 70/30 300 UNIT/3 ML VIAL SQ SCH (17:34)
[2016-10-04 21:18] LABS: Glucose,Whole Blood 134 mg/dL (75-99)
[2016-10-04] MEDS: PRAVASTATIN SODIUM 20 MG TAB PO SCH (21:44)
[2016-10-04] MEDS: HEPARIN SODIUM,PORCINE/D5W PMX 25,000 UNIT in DEXTROSE/WATER 1 500ML.BAG IV SCH (22:30)
[2016-10-05 05:41] LABS: Glucose,Whole Blood 111 mg/dL (75-99)
[2016-10-05 07:08] LABS: Basophils % (A) 0 %; CH 31.1; CHCM 31.7; Eosinophils # (A) 0.5 k/uL (0-0.7); Eosinophils % (A) 6 %; HCT 34.2 % (39.0-53.0); HDW 2.21; HGB 10.8 gm/dL (13.0-17.5); Luc % (Auto) 2; Lymphocytes # (A) 1.5 k/uL (1.0-4.8); Lymphocytes % (A) 17 %; MCH 31.2 pg (25.0-35.0); MCHC 31.6 g/dL (31.0-37.0); MCV 98.7 fL (80.0-100.0); Mean Platelet Volume 7.2; Monocytes # (A) 0.4 k/uL (0-1.0); Monocytes % (A) 5 %; Neutrophils # (A) 6.5 k/uL (1.3-7.7); Neutrophils % (A) 71 %; RBC 3.47 m/uL (4.30-5.90); RDW 13.3 % (11.5-15.5); WBC 9.2 k/uL (3.8-10.6); WBC (Perox) 10.16
[2016-10-05] MEDS: INSULIN NPH/REG INSULIN 70/30 300 UNIT/3 ML VIAL SQ SCH ×2 (07:23→17:13)
[2016-10-05 07:26] LABS: Anion Gap 14 mmol/L; Blood Urea Nitrogen 15 mg/dL (9-20); Calcium 8.9 mg/dL (8.4-10.2); Carbon Dioxide 25 mmol/L (22-30); Chloride 104 mmol/L (98-107); Glucose 114 mg/dL (74-99); Non-African American GFR(MDRD) >60 (>60 ml/min/1.73 sqM); Potassium 4.5 mmol/L (3.5-5.1); Sodium 143 mmol/L (137-145)
[2016-10-05] MEDS: ASPIRIN 325 MG TAB PO SCH (07:55)
[2016-10-05] MEDS: TAMSULOSIN 0.4 MG CAP.ER.24H PO SCH ×2 (07:55→21:17)
[2016-10-05] MEDS: ISOSORBIDE MONONITRATE 20 MG TAB PO SCH (07:55)
[2016-10-05] MEDS: OXYBUTYNIN CHLORIDE 5 MG TAB PO SCH ×2 (07:55→21:17)
[2016-10-05] MEDS: FUROSEMIDE 10 MG/ML 4 ML VIAL IV SCH ×2 (07:56→21:16)
[2016-10-05] MEDS: MAGNESIUM OXIDE 400 MG TAB PO SCH ×2 (07:56→21:16)
[2016-10-05] MEDS: CLOPIDOGREL 75 MG TAB PO SCH (07:56)
[2016-10-05] MEDS: LOSARTAN 50 MG TAB PO SCH (07:56)
[2016-10-05] MEDS: oxyCODONE-APAP 5-325MG 1 EACH TAB PO PRN (10:48)
[2016-10-05 10:56] VITALS: BMI 39.2
[2016-10-05 11:43] LABS: Glucose,Whole Blood 121 mg/dL (75-99)
--- NOTE | 2016-10-05 11:58 | PN ---
DATE OF SERVICE: 10/04/2016 This 71-year-old gentleman who was admitted with CHF acute exacerbation is being closely monitored. Seen and evaluated the patient along with nurse practitioner. Please refer to the nurse practitioner notes and impression documented as a scribe for further information. Prognosis guarded. See labs and orders for further details. Further recommendations to follow.
--- NOTE | 2016-10-05 13:37 | P.PN ---
Subjective Slit pleasant 71-year-old gentleman with history of diabetes, hypertension, hyperlipidemia, coronary artery disease, prior bypass surgery in the 1980s and recent stent placement earlier this year. He follows with a industrial truck driver at [facility]. He was transferred here from the [place] office in the [facility] where he was going for a follow-up appointment. Apparently walking into his appointment patient became quite exertionally short of breath and developed some pressure and heaviness in his chest. He was being seen at the [place] clinic because of some new peripheral edema as well as feeling weak and sluggish for the past week or so. An EKG was performed at the [place] which revealed atrial fibrillation with a slow ventricular response and nonspecific ST -T wave abnormalities. Chest was done upon presentation here that was negative for PE, suggestive of heart failure exacerbation with small right greater than left pleural effusions and mild interstitial edema. X-ray revealed mild interstitial venous congestion. Patient underwent echocardiogram that showed an ejection fraction of 40-45%. He has been on Lasix as well as IV heparin. Laboratory values showed a BUN 15 creatinine 0.84. On examination today, patient is sitting up in a chair. He feels his breathing is better and his edema has improved. Objective - Vital Signs Vital signs: Vital Signs Temp 97.8 F 10/05/16 08:00 Pulse 57 L 10/05/16 11:46 Resp 18 10/05/16 11:46 BP 145/84 10/05/16 11:46 Pulse Ox 94 L 10/05/16 11:46 Intake & Output 10/04/16 10/05/16 10/05/16 18:59 06:59 18:59 Intake Total 1700.000 907.384 Output Total 1795 1750 1525 Balance -95.000 -1750 -617.616 Weight 120.6 kg 120.6 kg Intake: IV 80 160 .9 @ 20 40 160 Heparin Sodium,Porcine/ 40 D5w Pmx 25,000 unit In Dextrose/Water 1 500ml. bag @ 8.1 UNITS/KG/HR 19. 98 mls/hr IV .Q24H [facility] Rx #:[id number] Intake, IV Titration 500.000 411.384 Amount Heparin Sodium,Porcine/ 500.000 411.384 D5w Pmx 25,000 unit In Dextrose/Water 1 500ml. bag @ 8.1 UNITS/KG/HR 19. 98 mls/hr IV .Q24H [facility] Rx #:[id number] Oral 1120 336 Output: Urine 1795 1750 1525 Other: Voiding Method Toilet Toilet Urinal Urinal # Voids 2 2 - Exam PHYSICAL EXAMINATION: HEENT: Head is atraumatic, normocephalic. Pupils equal, round. Neck is supple. There is no elevated jugular venous pressure. HEART EXAMINATION: Heart sounds irregularly irregular, S1 and S2 with a systolic murmur. CHEST EXAMINATION: Lungs taylor diminished air entry bilateral bases with faint crackles. No chest wall tenderness is noted on palpation or with deep breathing. ABDOMEN: Soft, nontender. Bowel sounds are heard. No organomegaly noted. EXTREMITIES: 1+ peripheral pulses with evidence of trace peripheral edema and no calf tenderness noted. NEUROLOGIC patient is awake, alert and oriented x3. . - Labs CBC & Chem 7: 10/05/16 06:11 10/05/16 06:11 Labs: Abnormal Lab Results - Last 24 Hours (Table) 10/04/16 10/04/16 10/04/16 Range/Units 14:18 16:57 21:16 RBC (4.30-5.90) m/uL Hgb (13.0-17.5) gm/dL Hct (39.0-53.0) % APTT (22.0-30.0) sec Glucose 149 H (74-99) mg/dL POC Glucose (mg/dL) 137 H 134 H (75-99) mg/dL 10/05/16 10/05/16 10/05/16 Range/Units 05:39 06:11 06:11 RBC 3.47 L (4.30-5.90) m/uL Hgb 10.8 L (13.0-17.5) gm/dL Hct 34.2 L (39.0-53.0) % APTT 83.7 H (22.0-30.0) sec Glucose (74-99) mg/dL POC Glucose (mg/dL) 111 H (75-99) mg/dL 10/05/16 10/05/16 Range/Units 06:11 11:41 RBC (4.30-5.90) m/uL Hgb (13.0-17.5) gm/dL Hct (39.0-53.0) % APTT (22.0-30.0) sec Glucose 114 H (74-99) mg/dL POC Glucose (mg/dL) 121 H (75-99) mg/dL Assessment and Plan Plan: #1 acute systolic congestive heart failure symptoms of exertional shortness of breath and chest discomfort #2 new-onset atrial fibrillation with slow ventricular response and a right bundle branch block #3 coronary artery disease with stent placement earlier this year #4 hypertension #5 hyperlipidemia #6 diabetes #7 abnormal troponins, 0.055, 0.061 and 0.056. Not suggestive of acute coronary syndrome, could be secondary to oxygen supply demand mismatch. From cardiac standpoint, We will add Eliquis 5 mg by mouth twice a day and stop Plavix and decrease aspirin 81 mg by mouth daily. Will continue IV Lasix. We will follow the patient's renal function and electrolytes. Further recommendations to follow. STRIP CATCHER note has been reviewed, I agree with a documented findings and plan of care. Patient was seen and examined.
--- NOTE | 2016-10-05 15:06 | P.PN ---
Subjective Date of service 10/04/2016. Progress note being dictated for Dr. Alarcon. Interval history: This 71-year-old gentleman admitted with acute CHF exacerbation and multiple other medical issues. Diuresing well on Lasix IV push with 24-hour I&O reflecting a negative fluid balance, improving edema. Atrial fibrillation with controlled ventricular rate on heparin drip. Breathing improving, maintaining obtaining O2 sats of 95-98% on room air . Chest x-ray noted. Denies chest pain, palpitations or increasing shortness of breath. Objective - Vital Signs Vital signs: Vital Signs Temp 97.6 F 10/04/16 15:36 Pulse 57 L 10/04/16 15:37 Resp 16 10/04/16 15:37 BP 147/71 10/04/16 15:36 Pulse Ox 95 10/04/16 15:36 Intake & Output 10/03/16 10/04/16 10/04/16 18:59 06:59 18:59 Intake Total 6455.209 9754.892 Output Total 2400 1795 Balance 1085.821 -2400 -133.108 Weight 122.7 kg Intake: IV 280 80 .9 @ 20 140 40 Heparin Sodium,Porcine/ 140 40 D5w Pmx 25,000 unit In Dextrose/Water 1 500ml. bag @ 8.1 UNITS/KG/HR 19. 98 mls/hr IV .Q24H [facility] Rx #:[id number] Intake, IV Titration 345.821 461.892 Amount Heparin Sodium,Porcine/ 345.821 461.892 D5w Pmx 25,000 unit In Dextrose/Water 1 500ml. bag @ 8.1 UNITS/KG/HR 19. 98 mls/hr IV .Q24H [facility] Rx #:[id number] Oral 460 1120 Output: Urine 2400 1795 Other: Voiding Method Toilet Toilet Toilet Urinal Urinal Urinal # Voids 1 2 - Exam PHYSICAL EXAM: VITAL SIGNS: [As above] GENERAL: [Sitting up in bed, no acute distress] HEENT: [Pupils equal conjunctiva normal.] NECK: [Supple, no JVD] RESPIRATORY EFFORT:[Normal] LUNGS: [Improving air entry, fine Bibasilar crackles, no wheezing, no rhonchi, ] CARDIOVASCULAR[irregular, positive systolic murmur, decreasing edema,] GI: [Abdomen soft, nontender, positive bowel sounds.] PSYCH: [Alert and oriented -3, mood and affect normal. NEURO: No focal deficits, moves all 4 extremities - Labs CBC & Chem 7: 10/05/16 06:11 10/05/16 06:11 Labs: Abnormal Lab Results - Last 24 Hours (Table) 10/03/16 10/03/16 10/03/16 Range/Units 19:52 20:52 23:59 WBC (3.8-10.6) k/uL RBC (4.30-5.90) m/uL Hgb (13.0-17.5) gm/dL Hct (39.0-53.0) % Neutrophils # (1.3-7.7) k/uL APTT 30.6 H (22.0-30.0) sec Glucose (74-99) mg/dL POC Glucose (mg/dL) 182 H 62 L (75-99) mg/dL 10/04/16 10/04/16 10/04/16 Range/Units 00:23 03:11 04:28 WBC 10.9 H (3.8-10.6) k/uL RBC 3.41 L (4.30-5.90) m/uL Hgb 10.7 L (13.0-17.5) gm/dL Hct 33.7 L (39.0-53.0) % Neutrophils # 8.3 H (1.3-7.7) k/uL APTT (22.0-30.0) sec Glucose (74-99) mg/dL POC Glucose (mg/dL) 73 L 101 H (75-99) mg/dL 10/04/16 10/04/16 10/04/16 Range/Units 04:28 06:00 11:39 WBC (3.8-10.6) k/uL RBC (4.30-5.90) m/uL Hgb (13.0-17.5) gm/dL Hct (39.0-53.0) % Neutrophils # (1.3-7.7) k/uL APTT 68.0 H (22.0-30.0) sec Glucose (74-99) mg/dL POC Glucose (mg/dL) 117 H 119 H (75-99) mg/dL 10/04/16 10/04/16 Range/Units 14:18 16:57 WBC (3.8-10.6) k/uL RBC (4.30-5.90) m/uL Hgb (13.0-17.5) gm/dL Hct (39.0-53.0) % Neutrophils # (1.3-7.7) k/uL APTT (22.0-30.0) sec Glucose 149 H (74-99) mg/dL POC Glucose (mg/dL) 137 H (75-99) mg/dL Assessment and Plan Plan: 1. [Acute on chronic congestive heart failure exacerbation, systolic dysfunction , EF 40-45%. 2. [Mildly elevated troponin secondary to CHF , not myocardial infarction as per cardiology]. 3. [Atrial fibrillation with controlled ventricular rate]. 4. [CAD, recent cardiac catheterization and stent placement, history of CABG]. 5. [Hypertension]. 6. [Hyperlipidemia]. 7. [Heparin monitoring]. 8. Diabetes mellitus 9. Benign prostatic hypertrophy 10. COPD in a patient with history of former nicotine dependence. Plan: Continue on current medication regime, Lasix, heparin drip, monitoring and symptomatic treatment. Fluid restrictions initiated. Continue diuresing with Lasix IV push .Anticoagulation as per cardiology. Increase ambulation as tolerated. Further recommendations to follow. The impression and plan of care has been dictated as directed. : I performed a H&P examination of this patient and discussed the same with the dictator. I agree with the dictator's note. Any additional findings/opinions/ etc. will be noted.
--- NOTE | 2016-10-05 15:16 | P.PN ---
Subjective Date of service 10/05/2016. Progress note being dictated for Dr. Alarcon. Interval history: This 71-year-old gentleman admitted with acute CHF exacerbation and multiple other medical issues. Continues to diurese well on Lasix IV push with 24-hour I&O reflecting a negative fluid balance. Edema improving. Atrial fibrillationl heart rates down into the 50s during the night , currently in the low 100s, anticoagulated on Eliquis. In reviewing in hallway , tolerating exertion well without increased shortness of breath. Good diet intake, no nausea vomiting or diarrhea. Denies chest pain, palpitations or increasing shortness of breath. Objective - Vital Signs Vital signs: Vital Signs Temp 97.8 F 10/05/16 08:00 Pulse 57 L 10/05/16 11:46 Resp 18 10/05/16 11:46 BP 145/84 10/05/16 11:46 Pulse Ox 94 L 10/05/16 11:46 Intake & Output 10/04/16 10/05/16 10/05/16 18:59 06:59 18:59 Intake Total 1700.000 907.384 Output Total 1795 1750 1525 Balance -95.000 -1750 -617.616 Weight 120.6 kg 120.6 kg Intake: IV 80 160 .9 @ 20 40 160 Heparin Sodium,Porcine/ 40 D5w Pmx 25,000 unit In Dextrose/Water 1 500ml. bag @ 8.1 UNITS/KG/HR 19. 98 mls/hr IV .Q24H [facility] Rx #:[id number] Intake, IV Titration 500.000 411.384 Amount Heparin Sodium,Porcine/ 500.000 411.384 D5w Pmx 25,000 unit In Dextrose/Water 1 500ml. bag @ 8.1 UNITS/KG/HR 19. 98 mls/hr IV .Q24H [facility] Rx #:[id number] Oral 1120 336 Output: Urine 1795 1750 1525 Other: Voiding Method Toilet Toilet Urinal Urinal # Voids 2 1 - Exam PHYSICAL EXAM: VITAL SIGNS: [As above] GENERAL: [Sitting up in bed, no acute distress] HEENT: [Pupils equal conjunctiva normal.] NECK: [Supple, no JVD] RESPIRATORY EFFORT:[Normal] LUNGS: Occasional fine Bibasilar crackles, no wheezing, no rhonchi, ] CARDIOVASCULAR[irregular, positive systolic murmur, decreasing edema,] GI: [Abdomen soft, nontender, positive bowel sounds.] PSYCH: [Alert and oriented -3, mood and affect normal. NEURO: No focal deficits, moves all 4 extremities - Labs CBC & Chem 7: 10/05/16 06:11 10/05/16 06:11 Labs: Abnormal Lab Results - Last 24 Hours (Table) 10/04/16 10/04/16 10/04/16 Range/Units 14:18 16:57 21:16 RBC (4.30-5.90) m/uL Hgb (13.0-17.5) gm/dL Hct (39.0-53.0) % APTT (22.0-30.0) sec Glucose 149 H (74-99) mg/dL POC Glucose (mg/dL) 137 H 134 H (75-99) mg/dL 10/05/16 10/05/16 10/05/16 Range/Units 05:39 06:11 06:11 RBC 3.47 L (4.30-5.90) m/uL Hgb 10.8 L (13.0-17.5) gm/dL Hct 34.2 L (39.0-53.0) % APTT 83.7 H (22.0-30.0) sec Glucose (74-99) mg/dL POC Glucose (mg/dL) 111 H (75-99) mg/dL 10/05/16 10/05/16 10/05/16 Range/Units 06:11 11:41 13:52 RBC (4.30-5.90) m/uL Hgb (13.0-17.5) gm/dL Hct (39.0-53.0) % APTT 61.7 H (22.0-30.0) sec Glucose 114 H (74-99) mg/dL POC Glucose (mg/dL) 121 H (75-99) mg/dL Assessment and Plan Plan: 1. [Acute on chronic congestive heart failure exacerbation, systolic dysfunction , EF 40-45%. 2. [Mildly elevated troponin secondary to CHF , not myocardial infarction as per cardiology]. 3. [New-onset Atrial fibrillation, with controlled ventricular rate, slow ventricular response at night]. 4. [CAD, recent cardiac catheterization and stent placement, history of CABG]. 5. [Hypertension]. 6. [Hyperlipidemia]. 7. Anticoagulated on Eliquis 8. Diabetes mellitus 9. Benign prostatic hypertrophy 10. COPD in a patient with history of former nicotine dependence. Plan: Continue on current medication regime, Lasix, Eliquis monitoring and symptomatic treatment. Continue diuresing with Lasix IV push .now been anticoagulated on Eliquis, case management to verify outpatient Rx coverage .Increase ambulation as tolerated. Further recommendations to follow. The impression and plan of care has been dictated as directed. : I performed a H&P examination of this patient and discussed the same with the dictator. I agree with the dictator's note. Any additional findings/opinions/ etc. will be noted.
[2016-10-05] MEDS: APIXABAN 5 MG TAB PO SCH ×2 (15:49→21:16)
[2016-10-05] MEDS ORDERED: FUROSEMIDE 40 MG TAB PO SCH (16:00)
[2016-10-05 16:48] LABS: Glucose,Whole Blood 118 mg/dL (75-99)
[2016-10-05 20:53] LABS: Glucose,Whole Blood 84 mg/dL (75-99)
[2016-10-05] MEDS: PRAVASTATIN SODIUM 20 MG TAB PO SCH (21:16)
[2016-10-05 23:29] LABS: Glucose,Whole Blood 93 mg/dL (75-99)
[2016-10-06 02:30] LABS: Glucose,Whole Blood 105 mg/dL (75-99)
[2016-10-06] MEDS: oxyCODONE-APAP 5-325MG 1 EACH TAB PO PRN (03:33)
[2016-10-06 06:17] LABS: Glucose,Whole Blood 125 mg/dL (75-99)
[2016-10-06] MEDS: INSULIN NPH/REG INSULIN 70/30 300 UNIT/3 ML VIAL SQ SCH (07:03)
[2016-10-06 07:53] LABS: Anion Gap 11 mmol/L; Blood Urea Nitrogen 16 mg/dL (9-20); Calcium 9.2 mg/dL (8.4-10.2); Carbon Dioxide 29 mmol/L (22-30); Chloride 101 mmol/L (98-107); Glucose 122 mg/dL (74-99); Non-African American GFR(MDRD) >60 (>60 ml/min/1.73 sqM); Potassium 4.5 mmol/L (3.5-5.1); Sodium 141 mmol/L (137-145)
[2016-10-06] MEDS: ISOSORBIDE MONONITRATE 20 MG TAB PO SCH (08:01)
[2016-10-06] MEDS: APIXABAN 5 MG TAB PO SCH (08:01)
[2016-10-06] MEDS: FUROSEMIDE 10 MG/ML 4 ML VIAL IV SCH (08:01)
[2016-10-06] MEDS: MAGNESIUM OXIDE 400 MG TAB PO SCH (08:02)
[2016-10-06] MEDS: OXYBUTYNIN CHLORIDE 5 MG TAB PO SCH (08:02)
[2016-10-06] MEDS: LOSARTAN 50 MG TAB PO SCH (08:02)
[2016-10-06] MEDS: TAMSULOSIN 0.4 MG CAP.ER.24H PO SCH (08:02)
[2016-10-06 08:06] LABS: Basophils % (A) 0 %; CH 31.1; CHCM 31.8; Eosinophils # (A) 0.4 k/uL (0-0.7); Eosinophils % (A) 4 %; HCT 34.8 % (39.0-53.0); HDW 2.22; HGB 11.1 gm/dL (13.0-17.5); Luc # (Auto) 0.16; Luc % (Auto) 2; Lymphocytes # (A) 1.4 k/uL (1.0-4.8); Lymphocytes % (A) 15 %; MCH 31.5 pg (25.0-35.0); MCHC 31.9 g/dL (31.0-37.0); MCV 98.5 fL (80.0-100.0); Mean Platelet Volume 6.9; Monocytes # (A) 0.6 k/uL (0-1.0); Monocytes % (A) 6 %; Neutrophils # (A) 7.3 k/uL (1.3-7.7); Neutrophils % (A) 74 %; RBC 3.53 m/uL (4.30-5.90); RDW 13.2 % (11.5-15.5); WBC 9.9 k/uL (3.8-10.6); WBC (Perox) 10.61
[2016-10-06] MEDS ORDERED: ASPIRIN 81 MG CHEW PO SCH (09:00)
--- NOTE | 2016-10-06 09:25 | PN ---
DATE OF SERVICE: 10/05/2016 This 71-year-old gentleman who was admitted with CHF acute exacerbation, improved significantly. Lasix has been transitioned to p.o. No chest pain. No palpitations. No fever. Seen and evaluated the patient along with nurse practitioner. Please refer to the nurse practitioner notes and impression documented as a scribe for further information. Prognosis guarded.
[2016-10-06 11:55] LABS: Glucose,Whole Blood 119 mg/dL (75-99)
[2016-10-06 12:00] VITALS: BP 144/66; PULSE 67; RESP 20; TEMP 97
[2016-10-06] MEDS ORDERED: FUROSEMIDE 40 MG TAB PO SCH (16:00)
--- NOTE | 2016-10-06 16:31 | PN ---
Mr. Scott is a 71-year-old male with a history of coronary artery disease, who presented with symptoms of progressive dyspnea, was noted to be in atrial fibrillation, which is new for him. He is feeling better today. His breathing is stable. He is ambulating without much difficulty. He denies any chest pain. No dizziness. No palpitation. He had an echocardiogram revealed a moderately impaired left ventricle systolic function. He continues to be at this time on Eliquis 5 mg twice a day, aspirin 20 mg daily, Lasix 40 mg IV q.12 hours, isosorbide mononitrate 20 mg daily, losartan 50 mg daily, pravastatin 20 mg daily. PHYSICAL EXAMINATION: Blood pressure 144/60 with a heart rate in 60s. LUNGS: Clear. HEART: Irregularly irregular. S1, S2, no S3, with systolic murmur. No diastolic murmur. ABDOMEN: Soft and nontender, obese. EXTREMITIES: No edema. Lab data revealed BUN and creatinine of 16 and 0.9. Potassium 4.5. Hemoglobin 11.1. IMPRESSION: 1. Atrial fibrillation not documented in the past. 2. History of coronary artery disease, stable. 3. Ischemic cardiomyopathy. 4. Congestive heart failure, improving. 5. Diabetes. 6. Hyperlipidemia. RECOMMENDATIONS: I will switch him to oral diuretics, increase his level of activity. From the cardiac standpoint, he may be able to be discharged to be followed by his primary laboratory sample carrier. He may be a candidate to attempt advent of normal sinus rhythm with cardioversion as an outpatient since the atrial fibrillation was not documented in the past.
--- NOTE | 2016-10-09 15:29 | DS ---
DATE OF ADMISSION: 10/02/2016 DATE OF DISCHARGE: 10/06/2016 DATE OF SERVICE: 10/06/2016 FINAL DIAGNOSES: 1. Congestive heart failure acute exacerbation with acute on chronic systolic dysfunction, ejection fraction 40% to 45%. 2. Mildly elevated troponin secondary to congestive heart failure per Cardiology. 3. New onset atrial fibrillation with controlled ventricular rate. 4. Coronary artery disease, stent and cardiac coronary artery bypass grafting history. 5. Hypertension. 6. Hyperlipidemia. 7. Anticoagulate with Eliquis. 8. Diabetes mellitus type 2. 9. Benign prostatic hypertrophy. 10. Chronic obstructive pulmonary disease. 11. History of nicotine dependence. DISCHARGE DISPOSITION: The patient will be discharged in a stable condition with guarded prognosis. Discharge cleared by Cardiology. HISTORY OF PRESENT ILLNESS: This 71-year-old gentleman with a past medical history of multiple medical problems was followed by Dr. Cruz in the outpatient setting, was admitted with CHF acute exacerbation. Patient was treated with diuretics. Patient improved significantly. On exam, vitals are stable. CARDIOVASCULAR SYSTEM: S1, S2 muffled. ABDOMEN: Soft. RESPIRATORY: A few scattered rhonchi. Lab-aguilar creatinine is stable. Patient will be discharged in stable condition. 1. Diet is cardiac. 2. Activity limited until followup. 3. Fluid restriction mL/24 hours, no added salt. 4. Follow up with Dr. Cruz in 2 to 3 days. 5. CBC and BMP and follow up with Dr. Llamas as advised. Medications: 1. Eliquis 5 mg p.o. b.i.d. 2. Aspirin 81 mg daily. 3. Lasix 40 mg p.o. b.i.d. 4. Insulin NPH 40 units subQ b.i.d. 5. Ismo 20 mg p.o. daily. 6. Cozaar 50 mg p.o. daily. 7. Magnesium oxide 400 mg p.o. b.i.d. 8. Oxybutynin 5 mg p.o. b.i.d. 9. Pravachol 20 mg q.h.s. 10. Flomax 0.4 b.i.d. 11. Oxycodone, Percocet 5 mg 2 tablets q.i.d. p.r.n. Once again, the patient will be discharged in a stable condition with guarded prognosis. MTDD
== END 2016-10-06 15:18 | disposition home or self-care (01) | DRG 293 ==
LOC: EC 13:01 → 6SEL 14:37 → OBSVTOIN 14:37 → 6SEL 15:43
PROVIDERS: ADMIT Internal Medicine; ATTEND Internal Medicine
DX: I11.0 Hypertensive heart disease with heart failure (principal); J44.9 Chronic obstructive pulmonary disease, unspecified; I48.91 Unspecified atrial fibrillation; E11.9 Type 2 diabetes mellitus without complications; I25.5 Ischemic cardiomyopathy; I25.10 Atherosclerotic heart disease of native coronary artery without angina pectoris; I45.10 Unspecified right bundle-branch block; I50.23 Acute on chronic systolic (congestive) heart failure; E78.5 Hyperlipidemia, unspecified; I25.2 Old myocardial infarction; M19.90 Unspecified osteoarthritis, unspecified site; N40.0 Benign prostatic hyperplasia without lower urinary tract symptoms; E66.9 Obesity, unspecified; Z68.38 Body mass index [BMI] 38.0-38.9, adult; Z79.4 Long term (current) use of insulin; Z79.82 Long term (current) use of aspirin; Z79.02 Long term (current) use of antithrombotics/antiplatelets; Z79.899 Other long term (current) drug therapy; Z88.1 Allergy status to other antibiotic agents; Z88.0 Allergy status to penicillin; Z88.2 Allergy status to sulfonamides; Z87.891 Personal history of nicotine dependence; Z95.1 Presence of aortocoronary bypass graft; Z95.5 Presence of coronary angioplasty implant and graft; Z82.49 Family history of ischemic heart disease and other diseases of the circulatory system
CPT/HCPCS: 36415; 71010; 71275; 80048; 80053; 80061; 82550; 82553; 83036; 83735; 83880; 84484; 85025; 85379; 85610; 85730; 93005; 93306; 96365; 96375; 96376; 99285